=== PATIENT | female | born 1950 | race Caucasian/White ===

== ENCOUNTER 2025-04-20 12:16 | Emergency (ER) | payer MEDICARE, SELFPAY ==
[2025-04-20 12:18] VITALS: BP 197/76; PULSE 66; RESP 18; TEMP 36.8; O2SAT 98
--- NOTE | 2025-04-20 12:44 | RAD_ITS ---
PROCEDURE: KNEE 4 OR MORE VIEWS 04/20/2025 REASON FOR EXAM: INJURY/PAIN TECHNIQUE: Procedure Code: RADKN Modality: DX Procedure: KNEE 4 OR MORE VIEWS Laterality: Right COMPARISON: None FINDINGS: Bones: Joint Bones: Negative for fracture. Distal femur negative. Distal tibia and fibula scratchnegative. Joints: Negative for joint space narrowing. Effusion: Negative for joint effusion. Soft tissue: Negative for soft tissue swelling. Other: Remainder of the exam negative. RAD/Knee 4 or More Views IMPRESSION: Negative right knee. Reading Location: [id number]
--- NOTE | 2025-04-20 12:44 | RAD_ITS ---
PROCEDURE: HAND MIN 3 VIEWS; WRIST MIN 3 VIEWS 04/20/2025 REASON FOR EXAM: INJURY/PAIN TECHNIQUE: Procedure Code: JR; RADWR Modality: DX Procedure: HAND MIN 3 VIEWS; WRIST MIN 3 VIEWS Laterality: Right COMPARISON: None FINDINGS: Three views of the right hand. Bones: The distal radius and ulna negative. The carpals metacarpals and phalanges negative. Joints: Degenerative changes most prominent in the distal interphalangeal joints. No erosive changes.. Degenerative changes of the triscaphe joint. Soft tissues: Adjacent soft tissues otherwise negative. Other: Remainder of the exam negative. Three views of the right wrist. Bones: Distal radius and ulna otherwise negative. Carpals and metacarpals otherwise negative. Negative for fracture. Joints: Mild degenerative changes of the triscaphe joint. Soft tissues: Adjacent soft tissues otherwise negative. Negative for soft tissue swelling. Other: Remainder of exam negative. RAD/Wrist min 3 Views IMPRESSION: Negative for acute bony abnormality of the right wrist or hand. Reading Location: [id number]
--- NOTE | 2025-04-20 12:44 | RAD_ITS ---
PROCEDURE: HAND MIN 3 VIEWS; WRIST MIN 3 VIEWS 04/20/2025 REASON FOR EXAM: INJURY/PAIN TECHNIQUE: Procedure Code: JR; RADWR Modality: DX Procedure: HAND MIN 3 VIEWS; WRIST MIN 3 VIEWS Laterality: Right COMPARISON: None FINDINGS: Three views of the right hand. Bones: The distal radius and ulna negative. The carpals metacarpals and phalanges negative. Joints: Degenerative changes most prominent in the distal interphalangeal joints. No erosive changes.. Degenerative changes of the triscaphe joint. Soft tissues: Adjacent soft tissues otherwise negative. Other: Remainder of the exam negative. Three views of the right wrist. Bones: Distal radius and ulna otherwise negative. Carpals and metacarpals otherwise negative. Negative for fracture. Joints: Mild degenerative changes of the triscaphe joint. Soft tissues: Adjacent soft tissues otherwise negative. Negative for soft tissue swelling. Other: Remainder of exam negative. RAD/Hand Min 3 Views IMPRESSION: Negative for acute bony abnormality of the right wrist or hand. Reading Location: [id number]
--- NOTE | 2025-04-20 12:45 | EX.ED.UPPERE ---
HPI History of Present Illness Chief Complaint: Upper Extremity Injury Informant: patient Narrative Narrative: Patient is a 74-year-old female who with no stated past medical history, not on any anticoagulation, presenting after mechanical fall. She was walking [place] and stepped over a curb when she tripped. This caused her to speed up trying to catch her balance and she ultimately fell forward. She fell with her right hand outstretched and also landed on her right knee. Her right cheek hit the ground and scraped. She denies any loss of conscious. Did take Tylenol prior to arrival. Is mostly having pain in her right hand along her 4th and 5th MCPs. Pain is worse with range of motion of the hand. Initially went to urgent care where they are worried she could have a fracture dislocation so she was sent to the emergency room for further evaluation. No other complaints or concerns at this time [facility] Medical History (Updated 04/20/25 @ 14:[address] Tasia Aguilar DO) Hypothyroid Fibromyalgia H/O cholelithiasis Diabetes Hypertension Allergy/AdvReac Type Severity Reaction Status Date / Time codeine Allergy Severe unknown Verified 04/20/25 12:20 hydromorphone (From Dilaudid) AdvReac Mild stiffness Verified 04/20/25 12:20 prochlorperazine (From AdvReac Mild itching Verified 04/20/25 12:20 Compazine) Surgical History (Updated 04/20/25 @ 12:51 by James Cantrell) H/O total hysterectomy Social History Smoking Status: Never smoker ROS ROS ED Constitutional Constitutional ED: Denies chills or fever(s) Eyes Eyes: Denies blurry vision or change in vision Cardiovascular Cardiovascular: Denies chest pain Gastrointestinal Gastrointestinal: Denies nausea or vomiting Musculoskeletal Musculoskeletal: Reports other Details: Right hand pain, right knee pain Integumentary Reports Abrasions Neurologic Neurologic: Denies headache(s), paresthesias or weakness Psychiatric Psychiatric: Denies anxiety Hematologic/Lymphatic Hematologic/Lymphatic: Denies easy bleeding or easy bruising EXAM Physical Exam Const Vital Signs: 04/20/25 12:18 Temperature 98.2 F Temperature Source Oral Pulse Rate 66 Respiratory Rate 18 Blood Pressure 197/76 H Blood Pressure Mean 116 Pulse Ox 98 Oxygen Delivery Method Room Air Positive well nourished and well developed General Appearance ED: well developed and NAD HEENT Reports moist mucous membranes HEENT Narrative: Cerumen impaction on the right ear. Partial cerumen occlusion of the left tympanic membrane. No rhinorrhea. No nasal septal trauma or hematoma appreciated. No trismus. Small area of bruising/contusion to the right zygomatic process/cheek area. Neck supple Neck Narrative: Normal range of motion of the neck General: Negative for tenderness Chest Wall inspection of chest normal Resp normal respiratory effort and clear to auscultation bilaterally Cardio regular rate and regular rhythm Cardio Narrative: 2+ radial pulses Extremity Extremity Narrative: Normal left upper extremity. Of her right upper extremity no deformity or tenderness to the shoulder or elbow. She has tenderness along the distal ulna on palpation. No obvious deformity of the wrist. Pain and swelling as well as developing ecchymosis to the right hand most pronounced along the lateral MCPs. Flexion limited secondary to pain however is able to flex the fingers partially and fully extend them. No obvious deformity present. No obvious deformity to lower extremities. Mild swelling and abrasion to the right anterior knee with tenderness to palpation along the patella. Normal extensor mechanism. No tenderness over the tibial plateau. No joint effusion appreciated. Neuro oriented x3, moves all extremities, no focal motor deficits and no sensory deficits noted Neuro Narrative: GSC equals 15 Sensorium / Orientation: alert Motor Exam: strength 5/5 throughout Skin Skin Narrative: Bruising to the right cheek, see ENT exam. Abrasion to the right anterior knee and right hand (hypothenar eminence) MDM MDM MDM Narrative Medical decision making narrative: Patient evaluated for injuries after mechanical fall. Differential includes hand fracture, patellar fracture, contusions. While she did hit her cheek she has minimal signs of trauma and I do not think she requires CT imaging at this time of the face. No physical exam findings consistent with orbital floor fracture. She has a normal neurologic exam. She ambulates with a steady gait the emergency room. Will be given Velcro wrist splint for her hand in case she has an occult fracture she does have some continued wrist pain. Discharge Plan Triage Chief Complaint: Upper Extremity Injury ED Provider: Tasia Aguilar Dx/Rx/DC Orders Clinical Impression: Fall on same level from tripping, Contusion of hand, right, Contusion of knee, right, Contusion of right cheek Instructions: ED Soft Tissue Contusion, ED Contusion, Upper Extremity Primary Care Provider: Tiburcio Nunez Referrals: Margarito Bernabe MD [Med Staff - Accounts Specialist] - Hipolito Pickett MD [Med Staff - Active Staff] - [facility] Doctor,Out of [Non-Staff] - Activity Restrictions/Additional Instructions: Continue to ice and elevate your hand/wrist. You have any broken bones on your x-ray. You were given information for family medicine practice. Alternate ibuprofen and Tylenol for pain Print Language: Spanish Disposition Disposition: Home, Self Care Discharge Date/Time: 04/20/25 14:35
--- OUTSIDE RECORDS SUMMARY | 2025-04-20 13:12 | XMS RPT_ITS | CCD ---
Author Organization [facility] PROFILING MACHINE SET UP OPERATOR TOOL [facility] Care Team Providers Care Coal Trimmer Name Role Phone UNKNOWN, PROVIDER Attending Unavailable UNKNOWN, PROVIDER Referring Unavailable UNKNOWN, PROVIDER Primary Care Unavailable UNKNOWN, PROVIDER Attending Unavailable UNKNOWN, PROVIDER Referring Unavailable UNKNOWN, PROVIDER Primary Care Unavailable UNKNOWN, PROVIDER Attending Unavailable UNKNOWN, PROVIDER Referring Unavailable UNKNOWN, PROVIDER Primary Care Unavailable MARY JANE GROVE Attending Unavailable Problems Problem Classification Problem Date Documented Da te Episodic/Chronic Diabetes mellitus without complication (1 source) Type 2 diabetes mellitus without complications; Translations: [Type 2 diabetes mellitus without complications] Onset: 04-01-2025 Chronic Essential hypertension (1 source) Essential (primary) hypertension; Translations: [Essential (primary) hypertension] Onset: 04-01-2025 Chronic Other connective tissue disease (1 source) Fibromyalgia; Translations: [Fibromyalgia] Onset: 04-01-2025 Episodic Thyroid disorders (1 source) Hypothyroidism, unspecified; Translations: [Hypothyroidism, unspecified] Onset: 04-01-2025 Chronic Results Test Name Value Interpretation Reference Range Facil ity CBC AND DIFFERENTIALon 04-01 ABSOLUTE BASOPHIL 0.0 x10*3/uL Normal 0.0-0.1 Formerly named [facility] Comment on above: Performed By: #### 4 [id number] #### [facility] [address] [place] [address] ABSOLUTE EOSINOPHIL 0.1 x10*3/uL Normal 0.1-0.3 [facility] Comment on above: Performed By: #### 4 [id number] #### [facility] [address] [place] [address] ABSOLUTE IMMATURE GRANULOCYTES 0.0 x10*3/uL Normal 0.0-0.[address] [facility] Comment on above: Performed By: #### 4 [id number] #### [facility] [address] [place] [address] ABSOLUTE LYMPH 1.4 x10*3/uL Normal 1.2-3.[address] [facility] Comment on above: Performed By: #### 4 [id number] #### [facility] [address] [place] [address] ABSOLUTE MONO 0.5 x10*3/uL Normal 0.2-0.[address] [facility] Comment on above: Performed By: #### 4 [id number] #### [facility] [address] [place] [address] ABSOLUTE NEUTROPHIL 4.1 x10*3/uL Normal 2.4-6.6 [facility] Comment on above: Performed By: #### 4 [id number] #### [facility] [address] [place] [address] Basophils/100 WBC (Bld) 0.5 % Normal [facility] Comment on above: Performed By: #### 4 [id number] #### [facility] [address] [place] [address] Eosinophils/100 WBC (Bld) 1.0 % Normal [facility] Comment on above: Performed By: #### 4 [id number] #### [facility] [address] [place] [address] Erythrocyte distribution width (RBC) [Ratio] 12.6 % Normal 11.5-14.[address] [facility] Comment on above: Performed By: #### 4 [id number] #### [facility] [address] [place] [address] Hematocrit (Bld) [Volume fraction] 42.2 % Normal 33.6-46.[address] [facility] Comment on above: Performed By: #### 4 [id number] #### [facility] [address] [place] [address] Hemoglobin (Bld) [Mass/Vol] 13.9 g/dL Normal 11.7-15.[address] [facility] Comment on above: Performed By: #### 4 [id number] #### [facility] [address] [place] [address] Immature granulocytes/100 WBC (Bld) 0.2 % Normal [facility] Comment on above: Performed By: #### 4 [id number] #### [facility] [address] [place] [address] Lymphocytes/100 WBC (Bld) 22.5 % Normal [facility] Comment on above: Performed By: #### 4 [id number] #### [facility] [address] [place] [address] MCH (RBC) [Entitic mass] 30.7 pg Normal 27.5-32.[address] [facility] Comment on above: Performed By: #### 4 [id number] #### [facility] [address] [place] [address] MCHC (RBC) [Mass/Vol] 32.9 g/dL Normal 30.7-35.5 [facility] Comment on above: Performed By: #### 4 [id number] #### [facility] [address] [place] [address] MCV (RBC) [Entitic vol] 93.2 fL Normal 80.2-[address] [facility] Comment on above: Performed By: #### 4 [id number] #### [facility] [address] [place] [address] Monocytes/100 WBC (Bld) 8.5 % Normal [facility] Comment on above: Performed By: #### 4 [id number] #### [facility] [address] [place] [address] Neutrophils/100 WBC (Bld) 67.3 % Normal [facility] Comment on above: Performed By: #### 4 [id number] #### [facility] [address] [place] [address] PLATELET COUNT 267 x10*3/uL Normal 150-400 [facility] Comment on above: Performed By: #### 4 [id number] #### [facility] [address] [place] [address] RED BLOOD CELL COUNT 4.53 x10*6/uL Normal 3.60-5.20 [facility] Comment on above: Performed By: #### 4 [id number] #### [facility] [address] [place] [address] WHITE BLOOD CELLS 6.1 x10*3/uL Normal 4.3-10.3 [facility] Comment on above: Performed By: #### 4 [id number] #### [facility] [address] [place] [address] COMPREHENSIVE METABOLIC PANE Hayden 04-01-2025 Albumin [Mass/Vol] 4.0 g/dL Normal 3.5-5.0 [facility] Comment on above: Performed By: #### 4 [id number] #### [place] [address] [place] #### [id number] #### [facility] [address] [place] [address] ALK PHOS 74 U/L Normal 24-126 [facility] Comment on above: Performed By: #### 4 [id number] #### [address] [address] [place] #### [id number] #### [place] [id number] [place] [address] ALT [Catalytic activity/Vol] 23 U/L Normal 4-35 [facility] Comment on above: Performed By: #### 4 [id number] #### [address] [address] [place] #### [id number] #### [facility] [address] [place] [address] AST [Catalytic activity/Vol] 25 U/L Normal 3-47 [facility] Comment on above: Performed By: #### 4 [id number] #### [address] [address] [place] #### [id number] #### [facility] [address] [place] [address] Bilirubin [Mass/Vol] 0.9 mg/dL Normal 0.2-1.6 [facility] Comment on above: Performed By: #### 4 [id number] #### [address] [address] [place] #### [id number] #### [place] [id number] [place] [address] Calcium [Mass/Vol] 9.7 mg/dL Normal 8.4-10.4 [facility] Comment on above: Performed By: #### 4 [id number] #### [place] [address] [place] #### [id number] #### [facility] [address] [facility] [place] [address] Chloride [Moles/Vol] 102 mmol/L Normal 96-109 [facility] Comment on above: Performed By: #### 4 [id number] #### [address] [address] [place] #### [id number] #### [facility] [address] [facility] [place] [address] CO2 [Moles/Vol] 30 mmol/L Normal 22-30 [facility] Comment on above: Performed By: #### 4 [id number] #### [address] [address] [place] #### [id number] #### [facility] [address] [facility] [place] [place] [address] Creatinine [Mass/Vol] 0.80 mg/dL Normal 0.52-1.04 [facility] Comment on above: Performed By: #### 4 [id number] #### [place] [address] [place] #### [id number] #### [facility] [address] [facility] [place] [place] [address] GLOMERULAR FILTRATION RATE ML/MIN/1.73 SQ M.PREDICTED 76.5 mL/min/1.73m*2 Normal >=60.0 [facility] Comment on above: Result Comment: eGFR calculation based on the Chronic Kidney Disease Epidemiology Collaboration (CKD-EPI) equation refit without adjustment for race. Categories in Chronic Kidney Disease (CKD) Category: GFR(mL/min/1.73m^2) Interpretation: G1* 90 or greater Normal or high G2* 60-89 Mild decrease G3a 45-59 Mild to moderate decrease G3b 30-44 Moderate to severe decrease G4 15-29 Severe decrease G5 14 or less Kidney failure *G1&G2: In the absence of evidence of kidney damage, neither GFR category G1 nor G2 fulfill the criteria for CKD Kidney Int Suppl.2013;3:1-150 Performed By: #### 4 [id number] #### [address] [address] [place] #### [id number] #### [facility] [address] [place] [address] Glucose [Mass/Vol] 119 mg/dL High 65-100 [facility] Comment on above: Performed By: #### 4 [id number] #### [place] [address] [place] #### [id number] #### [facility] [address] [place] [address] Potassium [Moles/Vol] 4.6 mmol/L Normal 3.6-5.[address] [facility] Comment on above: Performed By: #### 4 [id number] #### [address] [address] [place] #### [id number] #### [facility] [address] [place] [address] Protein [Mass/Vol] 7.1 g/dL Normal 6.3-8.2 [facility] Comment on above: Performed By: #### [id number] #### [address] [address] [place] #### [id number] #### [facility] [address] [place] [address] Sodium [Moles/Vol] 137 mmol/L Normal 135-147 [facility] Comment on above: Performed By: #### 4 [id number] #### [place] [address] [place] #### [id number] #### [facility] [address] [place] [address] Urea nitrogen [Mass/Vol] 22 mg/dL Normal 8-[address] [facility] Comment on above: Performed By: #### [id number] #### [place] [id number] [place] #### [id number] #### [facility] [address] [place] [address] LIPID PANELon 04-01-2025 Cholesterol [Mass/Vol] 185 mg/dL Normal <=200 [facility] Comment on above: Performed By: #### [id number] #### [address] [address] [place] #### [id number] #### [facility] [address] [place] [address] Cholesterol in HDL [Mass/Vol] 48.0 mg/dL Normal 40.0-59.9 [facility] Comment on above: Performed By: #### 4 [id number] #### [place] [address] [place] #### [id number] #### [facility] [address] [place] [address] LDL CHOLESTEROL CALCULATED 112 mg/dL High <=100 [facility] Comment on above: Result Comment: LDL REFERENCE RANGE: Optimal <100 mg/dl Near Optimal 100-129 mg/dL Borderline High 130-159 mg/dL High 160-189 mg/dL Very High >=190 mg/dL LDL-c is calculated using the Friedewald equation: LDL Cholesterol = (Total Cholesterol) - (HDL Cholesterol) - (Triglycerides/5). Performed By: #### 4 [id number] #### [place] [address] [place] #### [id number] #### [facility] [address] [place] [address] Triglyceride [Mass/Vol] 126 mg/dL Normal <=150 [facility] Comment on above: Performed By: #### 4 [id number] #### [place] [address] [place] #### [id number] #### [facility] [address] [place] [address] VLDL CHOLESTEROL JOEL 25 mg/dL Normal <=41 [facility] Comment on above: Performed By: #### 4 [id number] #### [place] [address] [place] #### [id number] #### [place] [address] [place] [address] Encounters Encounter Date Encounter Type Care Provider Facility Start: 04-01-2025 ambulatory [facility]ANE GR[facility] Start: 04-01-2025 Encounter for genera l adult medical examination with abnormal findings MARY JANE GROVE [facility] Start: 03-27-2025 End: 03-27-2025 ambulatory PROVIDER UNKNOWN Facility: Start: 03-19-2025 End: 03-19-2025 ambulatory PROVIDER UNKNOWN Facility: Start: 08-27-2024 End: 08-27-2024 ambulatory PROVIDER UNKNOWN Facility: Payers Date Payer Category Payer Unknown [id number] 1950 Unknown [id number] Unknown [id number] 2.16.8 [id number] Unknown [id number] 2.16.8 [id number] Unknown [id number] 2.16.8 [id number] Summary Purpose Family History No Family History Records FoundNo Family History Records Found Advance Directives No Advanced Directives Records FoundNo Advanced Directives Records Found Additional Source Comments INFORMATION SOURCE (unrecogn ized section and content) DATE CREATED AUTHOR 03/29/2025 [facility] DATE CREATED AUTHOR 'Volodymyr MILES 04/06/2025 [facility] FOR RECORDS PERTAINING TO PATIENTS WHO ARE OR HAVE BEEN ENROLLED IN A CHEMICAL DEPENDENCY/SUBSTANCEABUSE PROGRAM, SOME INFORMATION MAY BE OMITTED. This clinical summary was aggregated from multiple sources. Caution should be exercised in using it in the provision of clinical care. This summary normalizes information from multiple sources, and as a consequence, information in this document may materially change the coding, format and clinical context of patient data. In addition, data may be omitted in some cases. CLINICAL DECISIONS SHOULD BE BASED ON THE PRIMARY CLINICAL RECORDS. [facility] [employer] [facility] provides no warranty or guarantee of the accuracy or completeness of information in this document.
[2025-04-20 14:29] VITALS: BP 174/86; PULSE 67; RESP 18; TEMP 36.6; O2SAT 97
== END 2025-04-20 14:35 | disposition home or self-care (01) ==
PROVIDERS: Emergency Provider Emergency Medicine; Visit Provider Emergency Medicine
DX: S60.221A Contusion of right hand, initial encounter (principal); E11.9 Type 2 diabetes mellitus without complications; S00.83XA Contusion of other part of head, initial encounter; I10 Essential (primary) hypertension; W10.1XXA Fall (on)(from) sidewalk curb, initial encounter; S80.01XA Contusion of right knee, initial encounter; H61.23 Impacted cerumen, bilateral
CPT/HCPCS: 73110; 73130; 73564; 99283